=== PATIENT | female | born 1950 | race Caucasian/White ===

== ENCOUNTER → 2025-04-23 13:55 | Outpatient (REF) | payer MEDICARE, OTHER, SELFPAY ==
--- NOTE | 2025-04-23 15:20 | CARDSERVLU ---
Echocardiogram with Lumason completed after protocol screening completed. Allergies verified.
Patent IV site: __2nd attempt LAC, 22P___
IV site flushed with 0.9% NaCl pre and post administration.
Diluted bolus method utilized to enhance visualization of ventricular gillis.
Total volume given: __3.0 and 3.0 __ mL for lumason stress echo on treadmill
site dcd at completion of test.
Patient tolerated all procedures well without complications.
== END ==
LOC: RCS 13:55
PROVIDERS: ATTENDING PHYSICIAN Family Medicine
DX: R07.89 Other chest pain (principal)
CPT/HCPCS: 93017; 93350; Q9950